=== PATIENT | female | born 1970 | race Two or more races ===

== ENCOUNTER 2017-12-22 13:27 | Inpatient (IN) | payer BC ==
[2017-12-22] MEDS ORDERED: SODIUM CHLORIDE 0.9% 1,000 ML IV STA (13:59)
--- NOTE | 2017-12-22 14:01 | ED ---
Chest Pain HPI - General Chief Complaint: Chest Pain Stated Complaint: Chest Pain Time Seen by Provider: 12/22/17 13:32 Source: patient, RN notes reviewed, old records reviewed Mode of arrival: EMS Limitations: no limitations - History of Present Illness Initial Comments: 47-year-old female presents emergency Department chief complaint of chest pain, she had some episodes of nausea earlier today. She reports it subsided. He states that this afternoon she started to have severe chest pain and shortness of breath and tingling down her arms. Instructed to go worse. They called EMS and she was brought here. She reports that upon arriving here her chest pain is now subsided. She denies any nausea or shortness of breath. Family history of heart disease with no personal history of heart issues. She reports she is generally healthy. - Related Data Home Medications Medication Instructions Recorded Confirmed Levonorgestrel-Ethin Estradiol 1 tab PO DAILY 12/22/17 12/22/17 [Levora-28 Tablet] buPROPion SR [Wellbutrin Sr] 100 mg PO BID 12/22/17 12/22/17 Allergies Allergy/AdvReac Type Severity Reaction Status Date / Time No Known Allergies Allergy Verified 12/22/17 13:51 Review of Systems ROS Statement: Those systems with pertinent positive or pertinent negative responses have been documented in the HPI. ROS Other: All systems not noted in ROS Statement are negative. EKG Findings - EKG Comments: EKG Findings:: EKG shows sinus bradycardia with sinus arrhythmia, left atrial enlargement. Nonspecific ST-T wave ability. Ventricular rate of 50 bpm. TX interval 144 ms. QRS duration 82 ms. QT QTc is 416/408 ms. Second EKG p 1852. Normal sinus rhythm with sinus arrhythmia. ST and T-wave abnormality considering inferior ischemia. Ventricular rate of 74 bpm. When necessary interval 136 most seconds. QRS duration 84. QT QTc is 398/441 ms. Past Medical History Past Medical History: No Reported History History of Any Multi-Drug Resistant Organisms: None Reported Past Surgical History: Orthopedic Surgery Additional Past Surgical History / Comment(s): knee Past Psychological History: Depression Smoking Status: Never smoker Past Alcohol Use History: Occasional Past Drug Use History: None Reported General Exam - General Exam Comments Initial Comments: 47-year-old female. Alert. No distress. Limitations: no limitations General appearance: alert, in no apparent distress Head exam: Present: atraumatic, normocephalic, normal inspection Eye exam: Present: normal appearance, PERRL, EOMI. Absent: scleral icterus, conjunctival injection, periorbital swelling ENT exam: Present: normal exam Neck exam: Present: normal inspection. Absent: tenderness, meningismus, lymphadenopathy Respiratory exam: Present: normal lung sounds bilaterally. Absent: respiratory distress, wheezes, rales, rhonchi, stridor Cardiovascular Exam: Present: regular rate, normal rhythm, normal heart sounds. Absent: systolic murmur, diastolic murmur, rubs, gallop, clicks GI/Abdominal exam: Present: soft, normal bowel sounds. Absent: distended, tenderness, guarding, rebound, rigid Extremities exam: Present: normal inspection, full ROM, normal capillary refill. Absent: tenderness, pedal edema, joint swelling, calf tenderness Back exam: Present: normal inspection Neurological exam: Present: alert, oriented X3, CN II-XII intact Psychiatric exam: Present: normal affect, normal mood Course Vital Signs 12/22/17 13:35 Temperature 98.3 F Pulse Rate 65 Respiratory 18 Rate Blood Pressure 142/88 O2 Sat by Pulse 97 Oximetry - Reevaluation(s) Reevaluation #1: 12/22/17 15:43 Patient is reevaluated, resting comfortably. Complains of no pain. She states her bicycle home. Discussed slight abnormality in the EKG and slight bump in the troponin of 0.015. Discussed with her on a repeat the troponin approximately 4 hours from initial draw. Chest Pain [facility] 47-year-old female presents emergency department today with episode of nausea this morning that resided. Then she started to have an episode of chest pain shows breath she was at work. ARrived via EMS. Upon arrival the chest pain diminished. Her EKG does show some ST abnormalities and had a mildly elevated troponin of 0.15. Rest of lab work was normal. Normal chest x-ray. Due to the slightly elevated troponin and some ST changes week we did complete his second troponin. This was elevated at 0.086. Patient started on IV heparin. As far as cardiac risk factors she is a family history of heart disease. Patient is a nonsmoker She has no history of high blood pressure or hyperlipidemia. Otherwise generally healthy. Patient at this time will be started on IV heparin. Discussed admission and cardiac consult. Disposition Clinical Impression: NSTEMI (non-ST elevated myocardial infarction), Chest pain Disposition: ADMITTED IP TO THIS [facility] Condition: Stable Is patient prescribed a controlled substance at discharge?: No If prescribed controlled substance>3 days was MAPS reviewed?: No When asked, does pt state using other controlled substances?: No Referrals: Noa Rosen MD [Primary Care Provider] - 1-2 days Time of Disposition: 19:02
[2017-12-22 14:38] LABS: Basophils # (A) 0.1 k/uL (0-0.2); Basophils % (A) 1 %; Eosinophils # (A) 0.1 k/uL (0-0.7); Eosinophils % (A) 1 %; HCT 38.1 % (34.0-46.0); HGB 13.2 gm/dL (11.4-16.0); Lymphocytes # (A) 1.5 k/uL (1.0-4.8); Lymphocytes % (A) 21 %; MCH 30.4 pg (25.0-35.0); MCHC 34.6 g/dL (31.0-37.0); MCV 87.9 fL (80.0-100.0); Mean Platelet Volume 6.6; Monocytes # (A) 0.4 k/uL (0-1.0); Monocytes % (A) 6 %; Neutrophils # (A) 5.1 k/uL (1.3-7.7); Neutrophils % (A) 69 %; Platelet Count 272 k/uL (150-450); RBC 4.33 m/uL (3.80-5.40); RDW 12.5 % (11.5-15.5); WBC 7.4 k/uL (3.8-10.6)
--- NOTE | 2017-12-22 14:44 | XR ---
EXAMINATION TYPE: XR chest 2V DATE OF EXAM: 12/22/2017 COMPARISON: NONE HISTORY: Intermittent chest pain. TECHNIQUE: Frontal and lateral views of the chest are obtained. FINDINGS: Slight pectus excavatum deformity is seen. There is no focal air space opacity, pleural eff usion, or pneumothorax seen. The cardiac silhouette size is within normal limits. The osseous stru ctures are intact. IMPRESSION: No acute process identified.
[2017-12-22 14:49] LABS: ALT 33 U/L (9-52); AST 24 U/L (14-36); Alkaline Phosphatase 52 U/L (38-126); Anion Gap 11 mmol/L; Blood Urea Nitrogen 16 mg/dL (7-17); Calcium 9.6 mg/dL (8.4-10.2); Carbon Dioxide 27 mmol/L (22-30); Chloride 104 mmol/L (98-107); Glucose 109 mg/dL (74-99); Potassium 3.9 mmol/L (3.5-5.1); Sodium 142 mmol/L (137-145); Total Bilirubin 0.7 mg/dL (0.2-1.3); Total Protein 6.7 g/dL (6.3-8.2)
[2017-12-22 14:51] LABS: D-Dimer 0.24 mg/L FEU (<0.60); INR 1.1 (<1.2); Partial Thromboplastin Time 22.1 sec (22.0-30.0); Prothrombin Time 10.5 sec (9.0-12.0)
[2017-12-22 15:13] LABS: Creatine Kinase MB 1.5 ng/mL (0.0-2.4); Troponin I 0.015 ng/mL (0.000-0.034)
[2017-12-22] MEDS ORDERED: MORPHINE SULFATE 4MG/4ML SYRG IV PRN (19:02)
[2017-12-22] MEDS ORDERED: HEPARIN SODIUM,PORCINE 5,000 UNIT/ML 1 ML VIAL IV ONE (19:02)
[2017-12-22] MEDS ORDERED: HEPARIN SOD,PORK IN 0.45% NACL 25,000 UNIT in 0.45% NACL 1 500ML.BAG IV SCH (19:15)
[2017-12-22] MEDS: SODIUM CHLORIDE 0.9% 1,000 ML IV SCH (19:44)
[2017-12-22 21:09] VITALS: BMI 20.3
[2017-12-22] MEDS: NITROGLYCERIN SL TABS 0.4 MG TAB SUBLINGUAL PRN ×2 (23:23→23:29)
[2017-12-23] MEDS ORDERED: ALPRAZolam 0.25 MG TAB PO STA (00:38)
[2017-12-23 01:25] LABS: Creatine Kinase MB 2.5 ng/mL (0.0-2.4); Troponin I 0.139 ng/mL (0.000-0.034)
[2017-12-23] MEDS: SODIUM CHLORIDE 0.9% 1,000 ML IV SCH ×2 (06:41→19:54)
[2017-12-23 07:05] LABS: Mean Platelet Volume 6.7; Platelet Count 245 k/uL (150-450)
[2017-12-23 07:35] LABS: Cholesterol 121 mg/dL (<200); HDL Cholesterol 50 mg/dL (40-60); LDL Cholesterol,Calculated 55 mg/dL (0-99); Triglycerides 78 mg/dL (<150)
[2017-12-23] MEDS ORDERED: NITROGLYCERIN SL TABS 0.4 MG TAB SUBLINGUAL PRN (07:53)
[2017-12-23] MEDS ORDERED: ALPRAZolam 0.5 MG TAB PO PRN (07:53)
[2017-12-23] MEDS ORDERED: ASPIRIN 325 MG TAB PO STA (07:53)
[2017-12-23] MEDS ORDERED: ATORVASTATIN 80 MG TAB PO STA (07:53)
[2017-12-23] MEDS ORDERED: SODIUM CHLORIDE 0.9% 1,000 ML in EMPTY BAG 1 BAG IV ONE (07:53)
[2017-12-23] MEDS ORDERED: ALPRAZolam 0.25 MG TAB PO PRN (07:53)
[2017-12-23] MEDS: buPROPion SR 100 MG TABLET.ER PO SCH ×2 (08:29→20:46)
[2017-12-23] MEDS: METOPROLOL TARTRATE 25 MG TAB PO SCH ×2 (08:29→20:46)
--- NOTE | 2017-12-23 08:41 | CONS ---
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 The discomfort started yesterday at work with dizziness and numbness in both hands. Subsequently came into the emergency room and she had another episode last night. She is feeling well at the time my evaluation. The patient is quite active physically. She runs without any symptoms. She has no history of cardiac disease. She has no history of exertional dyspnea or chest discomfort. She had no similar symptoms in the past. She denies any PND, orthopnea, or peripheral edema. No prior history of dizziness, palpitation, or syncope. Her coronary risk factors are negative for hypertension, hyperlipidemia, diabetes or smoking. Her father had a myocardial infarction in his 60s. Her medications at home include Wellbutrin and control pill. REVIEW OF SYSTEMS: RESPIRATORY SYSTEM: She has no wheezing. No cough. No history of documented obstructive lung disease. GI SYSTEM: No recent GI bleed. No peptic ulcer disease. SYSTEM: No dysuria or hematuria. NERVOUS SYSTEM: No history of stroke or seizure. PHYSICAL EXAMINATION: She is a 47-year-old female, alert, oriented, in no apparent distress. Blood pressure 118/60 with the heart rate in the 70s. HEAD: Normocephalic. EYES: Sclerae nonicteric. NECK: Good upstroke. No bruit. No jugular venous distention. LUNGS: Clear to auscultation. HEART: Regular rate and rhythm. S1, S2. No S3 with systolic murmur 2/6, rising to the neck, mid peaking. No diastolic murmur. No rub. ABDOMEN: Soft, nontender. Positive bowel sounds. No organomegaly. EXTREMITIES: No edema. Intact distal pulses. LAB DATA: Lab data revealed Troponin of 0.015, 0.086, 0.139. Cholesterol 121, LDL 55. BUN and creatinine 16 and 0.65. Potassium 3.9. Hemoglobin is 13.2. EKG revealed a sinus mechanism with a normal axis and intervals, and ST-segment depression in inferolateral leads. IMPRESSION: 1. Symptoms of chest discomfort with abnormal EKG and troponin consistent with non ST- segment elevation myocardial infarction. The patient with no significant cardiac risk factors. 2. Aortic valve murmur, could represent a bicuspid aortic valve. RECOMMENDATION: I have recommended proceeding with coronary angiography to assess her status and guide her treatment. The rationale behind the procedure as well as the risks and complication were discussed with the patient who is in full understanding and agreement. An echocardiogram with Doppler will be obtained. Thank you for this consult. We will follow with you. OSIRIS / JHOAN: [id number] /
[2017-12-23] MEDS ORDERED: ASPIRIN 325 MG TAB PO SCH (09:00)
[2017-12-23] MEDS ORDERED: MORPHINE ORAL SOLN 10 MG/5 ML CUP PO PRN (09:26)
[2017-12-23] MEDS ORDERED: HEPARIN SODIUM 1,000 UN/ML (10ML VL) ONE (09:28)
[2017-12-23] MEDS ORDERED: VERAPAMIL 2.5 MG/ML 2 ML AMP ONE (09:28)
[2017-12-23] MEDS ORDERED: LIDOCAINE 2% INJ 20 MG/ML (20 ML MDV) ONE (09:28)
[2017-12-23] MEDS ORDERED: fentaNYL (PF) 50 MCG/ML 2 ML AMP ONE (09:28)
[2017-12-23] MEDS ORDERED: IV FLUID CONTINUATION 1,000 ML IV ONE (09:35)
[2017-12-23] MEDS ORDERED: fentaNYL (PF) 50 MCG/ML 2 ML AMP IVP ONE (09:49)
[2017-12-23] MEDS ORDERED: MIDAZOLAM 2 MG/2 ML VIAL ONE (09:52)
[2017-12-23] MEDS: MIDAZOLAM 2 MG/2 ML VIAL IVP ONE ×3 (09:54→10:07)
[2017-12-23] MEDS ORDERED: LIDOCAINE 2% INJ 20 MG/ML SQ ONE (09:54)
[2017-12-23] MEDS: VERAPAMIL SYRINGE (5 MG/10 ML) INTRAARTER ONE ×2 (09:56→10:04)
[2017-12-23] MEDS ORDERED: HEPARIN SODIUM 1,000 UN/ML (10ML VL) IV ONE (10:04)
[2017-12-23] MEDS ORDERED: IOPAMIDOL-370 125ML BTL INJ ONE (10:10)
[2017-12-23] MEDS ORDERED: SODIUM CHLORIDE 0.9% 1,000 ML IV SCH (10:30)
[2017-12-23] MEDS ORDERED: RX INFO: IV CONTRAST WAS GIVEN 1 EACH MISC MISCELLANE PRN (10:30)
--- NOTE | 2017-12-23 10:57 | ECHOF ---
Referral Reason:cad MEASUREMENTS -------- HEIGHT: 170.2 cm WEIGHT: 58.1 kg BP: 110/66 RVIDd: 2.9 cm (< 3.3) IVSd: 1.0 cm (0.6 - 1.1) LVIDd: 4.4 cm (3.9 - 5.3) LVPWd: 1.1 cm (0.6 - 1.1) IVSs: 1.5 cm LVIDs: 2.9 cm LVPWs: 1.5 cm LA Diam: 3.0 cm (2.7 - 3.8) LAESV Index (A-L): 24.43 ml/m Ao Diam: 3.4 cm (2.0 - 3.7) AV Cusp: 1.9 cm (1.5 - 2.6) MV EXCURSION: 17.202 mm (> 18.000) MV EF SLOPE: 152 mm/s (70 - 150) EPSS: 0.3 cm MV E True: 1.22 m/s MV DecT: 212 ms MV A True: 0.58 m/s MV E/A Ratio: 2.10 AR PHT: 622 ms RAP: 5.00 mmHg RVSP: 33.10 mmHg FINDINGS -------- Sinus rhythm. This was a technically good study. The left ventricular size is normal. Left ventricular wall thickness is normal. Overall left vent ricular systolic function is normal with, an EF between 55 - 60 %. The right ventricle is normal in size. Normal LA size by volume 22+/-6 ml/m2. The right atrium is normal in size. The aortic valve is trileaflet and appears structurally normal. There is mild aortic regurgitation. Mild mitral regurgitation is present. Mild tricuspid regurgitation present. Right ventricular systolic pressure is normal at < 35 mmHg. There is no pulmonic regurgitation present. The aortic root size is normal. Normal inferior vena cava with normal inspiratory collapse consistent with estimated right atrial pre ssure of 5 mmHg. There is no pericardial effusion. CONCLUSIONS -------- 1. Sinus rhythm. 2. This was a technically good study. 3. The left ventricular size is normal. 4. Left ventricular wall thickness is normal. 5. Overall left ventricular systolic function is normal with, an EF between 55 - 60 %. 6. The right ventricle is normal in size. 7. Normal LA size by volume 22+/-6 ml/m2. 8. The right atrium is normal in size. 9. The aortic valve is trileaflet and appears structurally normal. 10. There is mild aortic regurgitation. 11. Mild mitral regurgitation is present. 12. Mild tricuspid regurgitation present. 13. Right ventricular systolic pressure is normal at < 35 mmHg. 14. There is no pulmonic regurgitation present. 15. The aortic root size is normal. 16. Normal inferior vena cava with normal inspiratory collapse consistent with estimated right atrial pressure of 5 mmHg. 17. There is no pericardial effusion. CANE FEEDER: Ingrid Pittman RDCS
--- NOTE | 2017-12-23 11:10 | CC ---
CARDIAC CATHETERIZATION REPORT Mrs. Edwards is a 47-year-old female with no significant coronary risk factors who presented with symptoms of chest discomfort, ST depression in the inferolateral leads, as well as mild elevation of her troponin. In view of that, recommendation was made regarding cardiac catheterization. The procedure as well as the risks and complications were discussed with the patient who is in full understanding and agreement. PROCEDURE: Patient was brought to cathodic protection technician in the fasting semi-sedated state after receiving fentanyl and Benadryl and achieving moderate conscious sedated state. She was draped and prepped in conventional fashion. Using Xylocaine anesthesia in the Seldinger technique, a 6-Surinamese sheath was introduced in the right radial artery. Selective right and left coronary angiography performed using 5-Surinamese 3.5 bend right and left Cass catheter. Multiple views of the coronary artery including hemiaxial views were obtained. Following that 5-Surinamese tight pigtail catheter was introduced into the left ventricle and a 30-degree WITT view of the left ventricle was obtained. Following that, an BENINESE view of the ascending aorta was obtained. Following that, the catheter and sheath were removed. Hemostasis was obtained with deployment of a TR band. There was no immediate complication. Patient was returned to room in stable condition. Of note, the patient received 3000 units of intravenous heparin as well as intra-arterial verapamil. FINDINGS: LEFT MAIN: This is a short size vessel bifurcating left circumflex and left anterior descending artery. The left main coronary artery has no evidence of high-grade stenosis. LEFT ANTERIOR DESCENDING ARTERY: This is a large-sized vessel reaching toward the apex with a wraparound apex segment giving rise to 2 diagonal branches. The left anterior descending artery as well as branches have no evidence of obstructive coronary artery disease. LEFT CIRCUMFLEX: This is a nondominant vessel giving rise to 3 obtuse marginal branches. The first obtuse marginal branch has diffuse narrowing in the mid segment that could represent an area of spontaneous dissection with SERA-3 flow. RIGHT CORONARY ARTERY: This vessel is dominant, has no evidence of high-grade stenosis. LEFT VENTRICULOGRAM: Left ventriculogram was performed in 30-degree WITT view and revealed a normal left ventricular size and systolic function, ejection fraction 60%. AORTOGRAM: Aortogram was performed in the BENINESE view and revealed a mildly dilated ascending aorta with no significant aortic regurgitation and tricuspid aortic valve. HEMODYNAMIC: There was no gradient across the aortic valve. The left ventricular end- diastolic pressure about 10 mmHg. CONCLUSION: 1. A long diffuse area of irregularity in the first obtuse marginal branch that could represent evidence of spontaneous dissection with SERA-3 flow distally. 2. Normal left ventricular size and systolic function. 3. Mildly dilated ascending aorta. RECOMMENDATION: In view of finding anatomy, I have recommended continue medical therapy. The patient may have had a spontaneous dissection of the obtuse marginal branch. Will maximize her medical therapy and depending on her progress, further recommendation will be made. Those findings and recommendation were discussed with the patient and her family who are in full understanding and agreement. Duration of the procedure is 23 minutes. MMODL / IJN: [id number] /
--- NOTE | 2017-12-23 11:13 | LTR ---
December 23, 2017 Re: Jerry Natalya Dear Dr. Rosen: I had the opportunity to perform cardiac catheterization on Mrs. Edwards at [facility] on the 23 of December and a full copy of the procedure note will be forwarded to you. In brief, she was found to have a long segment of irregularity involving the first obtuse marginal branch that could represent a spontaneous dissection and I would recommend to maximize her medical therapy and depending on her progress, further recommendation will be made. Thank you again for allowing me the opportunity to participate in her care. Please feel free to call for any questions. Sincerely yours, MD OSIRIS Vázquez / CYNDIN: [id number] /
[2017-12-23] MEDS: LEVONORGESTREL ETHIN ESTRADIOL PO SCH (12:33)
[2017-12-23] MEDS ORDERED: ACETAMINOPHEN TAB 325 MG TAB PO PRN (16:36)
[2017-12-23 17:04] LABS: Glucose,Whole Blood 86 mg/dL (75-99)
--- NOTE | 2017-12-23 18:17 | HP ---
HISTORY AND PHYSICAL CHIEF COMPLAINT: Chest pain. HISTORY OF PRESENT ILLNESS: This is a 47-year-old woman with a past medical history of multiple medical problems, history of DJD, history of depression being followed by Dr. Rosen in outpatient setting is complaining of chest pain and the patient also had pain felt in the anterior part of the chest and without much radiation. Patient also complaining of numbness, weakness and the patient came to [facility] and admitted for further evaluation and treatment. Troponins are found to be elevated. Possibility of acute non ST-segment elevation myocardial infarction was of concern and the patient underwent cardiac catheterization per Cardiology. The cardiac cath showed some diffuse area of irregularity in the first obtuse marginal that could represent evidence of spontaneous dissection without any active obstruction and mildly dilated ascending aorta was noted. Patient is closely monitored. There is no history of fever, rigors. No history of headache, loss of consciousness, seizures. PAST MEDICAL HISTORY: History of DJD, history of depression. MEDICATIONS: Prior to admission include: 1. Wellbutrin SR 100 mg p.o. b.i.d. 2. Levora 1 tab p.o. daily. ALLERGIES: None. FAMILY HISTORY: History of coronary artery disease and myocardial infarction in the family. SOCIAL HISTORY: History of occasional alcohol. No history of smoking. REVIEW OF SYSTEMS: ENT: No diminished hearing or vision. CARDIOVASCULAR: As mentioned. RESPIRATORY: As mentioned. GI: No nausea. : No dysuria. NERVOUS SYSTEM: No numbness, weakness. ALLERGY/IMMUNOLOGY: No history of asthma. MUSCULOSKELETAL: As mentioned earlier. HEMATOLOGY/ONCOLOGY: No history of anemia. ENDOCRINE: No history of diabetes or hypothyroidism. CONSTITUTIONAL: As mentioned earlier. DERMATOLOGY: Negative. RHEUMATOLOGY: Negative. PSYCHIATRY: As mentioned earlier. PHYSICAL EXAMINATION: Alert and oriented x3. Pulse is 58, blood pressure 120/66, respiration 15, temperature 97.1, pulse ox 98% on room air. HEENT: Conjunctivae normal. NECK: No jugular venous distention. CARDIOVASCULAR: S1, S2 RESPIRATORY: Breath sounds diminished in the bases. A few scattered rhonchi. No crackles. ABDOMEN: Soft, nontender. No mass palpable. LEGS: No edema. NERVOUS SYSTEM: Higher function as mentioned. Moves all four limbs. No focal motor deficits. LYMPHATICS: No lymphadenopathy in the neck, axillae, groin. SKIN: No ulcer, rash or bleeding. JOINTS: No active deforming. LAB: Culture panel is normal. Troponin 0.015, 0.086 and 0.139. ASSESSMENT: 1. Acute non ST elevation a elevation myocardial infarction with chest pain. 2. Status post cardiac catheterization showing possibly long diffuse area of irregularity in the first obtuse marginal branch could represent some spontaneous dissection with SERA-3 flow. 3. History of depression. 4. History of degenerative joint disease. 5. Family history of coronary artery disease. RECOMMENDATIONS AND DISCUSSION: This 47-year-old woman who presented with multiple complex medical issues, will monitor the patient closely. Continue the current management and continue with antiplatelet agents. Continue the Lipitor. Continue the rest of the medications. Closely follow with Cardiology. Prognosis guarded. Discussed with the patient who understands. Further recommendations to follow. Home medications will be continued and copy of dictation will be forwarded to Dr. Rosen who is the primary physician. MMVAHE / JHOAN: [id number] /
[2017-12-23] MEDS ORDERED: ONDANSETRON 4 MG/2 ML VIAL IVP PRN (19:11)
[2017-12-24] MEDS: SODIUM CHLORIDE 0.9% 1,000 ML IV SCH ×2 (05:46→08:12)
[2017-12-24 06:45] LABS: Mean Platelet Volume 7.2; Platelet Count 247 k/uL (150-450)
[2017-12-24 07:08] LABS: Anion Gap 9 mmol/L; Blood Urea Nitrogen 12 mg/dL (7-17); Calcium 9.1 mg/dL (8.4-10.2); Carbon Dioxide 25 mmol/L (22-30); Chloride 107 mmol/L (98-107); Glucose 82 mg/dL (74-99); Potassium 4.1 mmol/L (3.5-5.1); Sodium 141 mmol/L (137-145)
[2017-12-24 08:04] VITALS: RESP 14
[2017-12-24] MEDS: METOPROLOL TARTRATE 25 MG TAB PO SCH (08:09)
[2017-12-24] MEDS: buPROPion SR 100 MG TABLET.ER PO SCH (08:09)
[2017-12-24] MEDS: LEVONORGESTREL ETHIN ESTRADIOL PO SCH (08:11)
[2017-12-24] MEDS ORDERED: ASPIRIN 81 MG PO SCH (09:00)
[2017-12-24] MEDS ORDERED: ATORVASTATIN 40 MG TAB PO SCH (09:00)
[2017-12-24] MEDS ORDERED: CLOPIDOGREL 75 MG TAB PO SCH (09:15)
[2017-12-24 12:42] VITALS: BP 122/80; PULSE 54; TEMP 97
--- NOTE | 2017-12-24 14:58 | P.PN ---
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, presented to the hospital with chest discomfort. She was seen in consultation by Dr. Olmos. Noted to have abnormal EKG and troponin consistent with possible non-ST elevation myocardial infarction for this reason the patient was taken to the cardiac catheterization lab yesterday where she was found to have a long diffuse area of irregularity in the first obtuse marginal branch that could represent evidence of spontaneous dissection with SERA-3 flow distally, normal left ventricular size and systolic function, mildly dilated ascending aorta. In view of the anatomy Dr. Olmos recommended continued medical therapy. Patient had an echocardiogram with Doppler study performed which revealed an ejection fraction of 55-60%. Aortic valve is trileaflet and appears structurally normal. Blood pressure this morning 122/80 with heart rate in the 50s to 60s. Sodium 141, potassium 4.1 chloride 107, CO2 25, BUN 12 , creatinine 0.6. Patient denies any chest discomfort, no difficulty in breathing, no palpitations. Objective - Vital Signs Vital signs: Vital Signs Temp 97 F L 12/24/17 12:00 Pulse 54 L 12/24/17 12:00 Resp 14 12/24/17 12:00 BP 122/80 12/24/17 12:00 Pulse Ox 98 12/24/17 12:00 Intake & Output 12/23/17 12/24/17 12/24/17 18:59 06:59 18:59 Intake Total 470 0 Balance 470 0 Weight 59.1 kg Intake: IV 350 Oral 120 0 Other: Voiding Method Toilet Toilet Toilet # Voids 1 1 # Bowel Movements 0 - Exam PHYSICAL EXAMINATION: HEENT: Head is atraumatic, normocephalic. Pupils equal, round. Neck is supple. There is no elevated jugular venous pressure. HEART EXAMINATION: Heart S1 and S2 systolic murmur is heard CHEST EXAMINATION: Lungs are clear to auscultation and precussion. No chest wall tenderness is noted on palpation or with deep breathing. ABDOMEN: Soft, nontender. Bowel sounds are heard. No organomegaly noted. EXTREMITIES: 2+ peripheral pulses with no evidence of peripheral edema and no calf tenderness noted. Right radial site clean and dry, good distal pulse. NEUROLOGIC patient is awake, alert and oriented -3. . - Labs CBC & Chem 7: 12/24/17 06:15 12/24/17 06:15 Assessment and Plan Plan: Assessment and plan #1 non-ST elevation myocardial infarction, status post cardiac catheterization which revealed what appears to be a spontaneous dissection of the obtuse marginal branch, maximal medical therapy advised. Mildly dilated ascending aorta. #2 systolic murmur, echo reveals normal LV function with trileaflet aortic valve Plan Cardiology's perspective, patient may be able to be discharged home today. We will make her a follow-up appointment next Friday with Dr Olmos in the Office in 3 She Is Also Scheduled a CT Angiogram on Friday of This Week. Discharge medications include aspirin 81 mg daily, Lipitor 40 mg daily, Plavix 75 mg daily , metoprolol 25 mg twice a day, DNP note has been reviewed, I agree with a documented findings and plan of care. Patient was seen and examined.
--- NOTE | 2017-12-24 23:29 | DS ---
DISCHARGE SUMMARY DATE OF SERVICE: 12/24/2017. FINAL DIAGNOSES: 1. Possible acute non ST-segment elevation myocardial infarction with chest pain. 2. Status post cardiac cath showing possibly long diffuse CAD of irregularity in the 1st obtuse marginal branch could represent some spontaneous dissection with SERA-3 flow. 3. History of depression. 4. History of degenerative joint disease. 5. Family history of coronary artery disease. DISCHARGE DISPOSITION: The patient is being discharged in stable condition with guarded prognosis. HISTORY OF PRESENT ILLNESS: This 47-year-old woman with a past medical history of multiple medical problems was admitted with chest pain. Troponins elevated, but however cardiac cath showed only findings as listed above. Patient treated medically and mildly dilated ascending aorta was also noted. Continue medical treatment was recommended. The patient to be discharged in stable condition with guarded prognosis. Alert and oriented times three. Vital signs stable. Cardiovascular: S1, S. Abdomen soft. No edema. Central nervous system: No focal deficits. Recommend to follow up closely with Cardiology and primary care physician in the outpatient setting. DISCHARGE MEDICATIONS AND ADVICE: 1. Diet is cardiac diet. 2. Activity until follow up. 3. Follow up with in 2-3 days per the gas plant repairer advice. MEDS: 1. Ecotrin 81 mg p.o. daily. 2. Lipitor 40 mg p.o. daily. 3. Wellbutrin XR 100 mg p.o. b.i.d. 4. Plavix 75 mg p.o. daily. 5. Lopressor 25 mg p.o. b.i.d. 6. Nitrostat 0.4 sublingual mg p.r.n. MMVAHE / CYNDIN: [id number] / MTDD
== END 2017-12-24 16:00 | disposition home or self-care (01) | DRG 282 ==
LOC: EC 13:27 → 6SEL 20:01
PROVIDERS: ADMIT Internal Medicine; ATTEND Internal Medicine
PROC: B2111ZZ Fluoroscopy of Multiple Coronary Arteries using Low Osmolar Contrast (ICD-10-PCS; 2017-12-23)
PROC: B2151ZZ Fluoroscopy of Left Heart using Low Osmolar Contrast (ICD-10-PCS; 2017-12-23)
PROC: 4A023N7 Measurement of Cardiac Sampling and Pressure, Left Heart, Percutaneous Approach (ICD-10-PCS; principal; 2017-12-23 09:15)
DX: I21.4 Non-ST elevation (NSTEMI) myocardial infarction (principal); F32.9 Major depressive disorder, single episode, unspecified; M19.90 Unspecified osteoarthritis, unspecified site; I77.819 Aortic ectasia, unspecified site; R01.1 Cardiac murmur, unspecified; Z82.49 Family history of ischemic heart disease and other diseases of the circulatory system; Z79.899 Other long term (current) drug therapy
CPT/HCPCS: 36415; 71046; 80048; 80053; 80061; 82550; 82553; 83735; 84484; 85025; 85049; 85379; 85610; 85730; 93005; 93306; 93458; 96361; 96365; 96376; 99285

== ENCOUNTER → 2017-12-26 | Outpatient (CLI) | payer BC ==
--- NOTE | 2017-12-26 11:43 | CT ---
EXAMINATION TYPE: CT angio chest DATE OF EXAM: 12/26/2017 COMPARISON: NONE HISTORY: Thoracic Aneurysm CT DLP: 562 mGycm CONTRAST: CTA thoracic aorta with 3-D reconstruction is performed and without and with IV Contrast, patient inj ected with 100 mL of Isovue 370. Contrast CTA of the thoracic aorta was performed from the lung apex through the upper abdomen. 3D re construction imaging obtained at a separate workstation. CT Chest: THORACIC AORTA: There is ectasia of the ascending thoracic aorta measuring 3.9 cm. Aneurysm is consid ered 4 cm or greater. Aortic arch and descending thoracic aorta are of normal caliber. I do not see e vidence for dissection within the [id number]. Branch vessels appear to be patent. No evidence for mediastinal hematoma. LUNGS: Postinflammatory changes in the region of the right upper lobe and lingula. No evidence for pu lmonary nodule or mass. No focal consolidation. No pleural effusion or CT evidence of interstitial brannon ng disease. MEDIASTINUM: No evidence for mediastinal hematoma. The heart is not enlarged. No evidence for med iastinal mass or adenopathy. HILAR STRUCTURES: No evidence for mass. No hilar adenopathy is appreciated. OTHER: No significant abnormality. IMPRESSION- 1. 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
== END ==
LOC: RADCTMAIN 10:05
PROVIDERS: ATTEND Internal Medicine Interventional Cardiology
DX: I77.810 Thoracic aortic ectasia (principal)
CPT/HCPCS: 71275; Q9967

== ENCOUNTER → 2021-09-27 | Outpatient (CLI) | payer BC ==
--- NOTE | 2021-09-28 06:33 | US ---
EXAMINATION TYPE: US kidneys/renal and bladder DATE OF EXAM: 09/27/2021 COMPARISON: NONE CLINICAL HISTORY: R31.1 MICRO HEMATURIA. No pain, microscopic hematuria EXAM MEASUREMENTS: Right Kidney: 10.6 x 5.3 x 4.7 cm Left Kidney: 11.8 x 5.0 x 4.8 cm Right Kidney: Medial anechoic lesion at hilum - 2.6 x 1.8 cm. Lower lateral cystic lesion = 0.7 x 0. 6 x 0.5 cm Left Kidney: No hydronephrosis or masses seen Bladder: Distended, anechoic Bilateral Jets seen Right kidney shows increased cortical echogenicity. There is 2.6 x 1.8 cm hypoechoic anechoic lesion centrally with increased through transmission appears to have calyceal extension. Suspect mild hydron ephrosis with extrarenal pelvis Technologist marked an incidental 6 mm round lesion too small to marleen acterize presumed benign. The urinary bladder is satisfactorily distended. Bilateral ureteral jets a re seen. Increased cortical echogenicity left kidney. IMPRESSION: Source of hematuria not identified. Possible mild right-sided hydronephrosis. Advise furt her workup with CT evaluation.
== END | disposition home or self-care (01) ==
LOC: RADUSWWP 16:39
PROVIDERS: ATTEND Urology
DX: R31.1 Benign essential microscopic hematuria (principal)
CPT/HCPCS: 76770

== ENCOUNTER → 2021-10-16 | Outpatient (CLI) | payer BC ==
--- NOTE | 2021-10-17 08:52 | CT ---
EXAMINATION TYPE: CT urogram wo/w con DATE OF EXAM: 10/16/2021 COMPARISON: Kidney ultrasound 09/27/2021 HISTORY: 51-year-old female R31.1, N1 3.3, Hematuria TECHNIQUE: Contiguous axial scanning of the abdomen and pelvis performed with IV Contrast, patient in jected with 100 mL of Isovue 300. Delayed images through the kidneys and bladder were obtained. Coron al/sagittal reconstructions performed. 3D reconstructions generated on a dedicated independent works tation. CT DLP: 956.80 mGycm Automated exposure control for dose reduction was used. FINDINGS: Heart normal size without pericardial effusion. Some atelectasis of the inferior lingula. No pleural effusion. No focal liver lesion or biliary ductal dilatation. Portal venous system is patent. Gallbladder collapsed. Adrenal glands, spleen, and pancreas within normal limits. No dilated small bowel, free fluid, or free air. No mesenteric or retroperitoneal lymphadenopathy. [id number] stool. No pericolic inflammatory change. The kidneys show a few scattered small cortical subcentimeter hypodensities most suggestive of cysts measuring up to 7 mm on either side. No suspicious enhancing renal mass is identified. There is bilateral mild pelvicaliectasis but symmetric uptake and excretion of contrast from both kid neys. No nephrolithiasis or suspicious calculus seen along the course of either ureter. No abnormal filling defect within the bilateral renal collecting systems or along the course of eithe r ureter. Bladder is urine distended. No abnormal mural based filling defect is identified along the posterior two thirds of the bladder which is opacified on the delayed scan. Multiple pelvic phlebolith. Uterus is anteverted. There is prominent soft tissue fullness and hypodensity in the region of the cervix, a xial series 12 image 70 and sagittal series 18 image 94. This can be correlated with direct inspectio n and Pap smear results. Suspected visualization of the bilateral ovaries. Not well delineated due to adjacent bowel loops. Otherwise, no abnormal fluid collection the pelvis or pelvic lymphadenopathy s een. Bones: Moderate to advanced degenerative disc disease L5-S1. Facet arthropathy lower lumbar spine. IMPRESSION: 1. MILD BILATERAL PELVICALIECTASIS, PROBABLY TRANSIENT. NO NEPHROLITHIASIS OR OBSTRUCTING LESION IS S EEN. NO SUSPICIOUS RENAL MASS. 2. SOME SOFT TISSUE FULLNESS AND HYPODENSITY IN THE REGION OF THE CERVIX MAY BE NORMAL VARIATION FOR THE PATIENT. CORRELATE WITH DIRECT INSPECTION AND PAP SMEAR RESULTS TO EXCLUDE A CERVICAL MASS.
== END | disposition home or self-care (01) ==
LOC: RADCTMAIN 15:49
PROVIDERS: ATTEND Urology
DX: R31.1 Benign essential microscopic hematuria (principal); N13.30 Unspecified hydronephrosis
CPT/HCPCS: 74178; 74400; Q9967

== ENCOUNTER 2022-01-02 07:44 | Day surgery (SDC) | payer BC ==
[2022-01-01 08:35] VITALS: BMI 20.3
[2022-01-02] MEDS ORDERED: LIDOCAINE 1% (10MG/ML) FOR IV START INTRADERMA PRN (08:12)
[2022-01-02] MEDS ORDERED: LACTATED RINGERS 1,000 ML IV SCH (08:12)
[2022-01-02 08:26] VITALS: TEMP 97.4
[2022-01-02] MEDS ORDERED: PROPOFOL 10 MG/ML 20 ML VIAL IV ONE (09:01)
--- NOTE | 2022-01-02 09:25 | P.PCN ---
Date of Procedure: 01/02/22 Procedure(s) Performed: BRIEF HISTORY: Patient is a 51-year-old pleasant white female scheduled for an elective colonoscopy as a part of screening for colorectal neoplasia. PROCEDURE PERFORMED: Colonoscopy. PREOPERATIVE DIAGNOSIS: Screening for colon cancer. IV sedation per Anesthesia. PROCEDURE: After informed consent was obtained, the patient, was brought into the endoscopy unit. IV sedation was administered by Anesthesia under continuous monitoring. Digital rectal examination was normal. Initially the Olympus CF-160 flexible video colonoscope was then inserted in the rectum, gradually advanced into the cecum without any difficulty. Careful examination was performed as the scope was gradually being withdrawn. Ileocecal valve and the appendiceal orifice were visualized and appeared normal. Prep was excellent. Mucosa of the cecum, ascending colon, transverse colon, descending colon, sigmoid colon, and rectum appeared normal. Retroflexion was performed in the rectum and no lesions were seen. The patient tolerated the procedure well. IMPRESSION: Normal-appearing colon from rectum to cecum with no evidence of colorectal neoplasia . RECOMMENDATIONS: Findings of this examination were discussed with the patient as well as her family. She was advised to have a repeat screening colonoscopy in 10 years..
[2022-01-02 09:45] VITALS: BP 121/83; PULSE 67; RESP 18
== END 2022-01-02 10:20 | disposition home or self-care (01) ==
LOC: ORWHC2ENDO 07:44
PROVIDERS: ATTEND Internal Medicine Gastroenterology
DX: Z12.11 Encounter for screening for malignant neoplasm of colon (principal); I25.10 Atherosclerotic heart disease of native coronary artery without angina pectoris; I25.42 Coronary artery dissection; M19.90 Unspecified osteoarthritis, unspecified site; F32.A Depression, unspecified; Z79.890 Hormone replacement therapy; Z79.899 Other long term (current) drug therapy; Z79.82 Long term (current) use of aspirin; Z91.018 Allergy to other foods; Z98.890 Other specified postprocedural states
CPT/HCPCS: 81025; J2704; G0121; 45378